=== PATIENT | female | born 1945 | race Caucasian/White ===

== ENCOUNTER 2023-09-19 12:21 | Inpatient (IN) ==
[2023-09-19] MEDS: ACETAMINOPHEN 325 MG TABLET PO ONE (13:14)
[2023-09-19] MEDS: VANCOMYCIN 1,500 MG in 0.9 % SODIUM CHLORIDE 500 ML IV ONE (13:42)
[2023-09-19 13:44] LABS: Basophils # (Auto) 0.02 K/mcL (0.00-0.30); Basophils % (Auto) 0.1 % (0.0-2.0); Eosinophils # (Auto) 0 K/mcL (0.00-0.70); Eosinophils % (Auto) 0 % (0.0-7.0); Hematocrit 38.4 % (34.1-44.9); Hemoglobin 11.7 g/dL (11.2-15.7); Lymphocytes # (Auto) 0.52 K/mcL (1.50-4.80); Lymphocytes % (Auto) 3.8 % (15.5-49.0); Mean Cell Volume 89.7 fL (80.0-100.0); Mean Corpuscular HGB Conc 30.5 g/dL (31.0-36.0); Mean Platelet Volume 9.5 fL (8.8-12.5); Monocytes # (Auto) 0.43 K/mcL (0.10-0.90); Monocytes % (Auto) 3.2 % (1.0-12.0); Neutrophils % (Auto) 92.5 % (38.0-78.0); Platelet Count 175 K/mcL (140-440); RBC 4.28 M/mcL (3.59-5.38); WBC 13.6 K/mcL (4.5-11.0)
[2023-09-19 14:07] LABS: ALT/SGPT 7 U/L (<40); AST/SGOT 22 U/L (<32); Albumin 4.3 gm/dL (3.2-5.2); Albumin/Globulin Ratio 1.2 (1.0-2.3); Alkaline Phosphatase 116 U/L (39-117); Bilirubin,Total 0.5 mg/dL (0.1-1.0); Blood Urea Nitrogen 23 mg/dL (8-23); C-Reactive Protein 5.79 mg/dL (0.03-0.80); Calcium 9.5 mg/dL (8.6-10.4); Carbon Dioxide 27 mmol/L (22-30); Chloride 97 mmol/L (96-108); Globulin 3.5 gm/dL (2.2-3.7); Glomerular Filtration Rate 54; Glucose 128 mg/dL (70-105)
[2023-09-19 14:24] LABS: Appearance,Urine Clear (Clear); Bilirubin,Urine Negative (Negative); Color,Urine Yellow; Culture Indicated,Urine No; Glucose,Urine (UA) Negative (Negative); Ketones,Urine Negative (Negative); Leukocyte Esterase,Urine Negative /uL (Negative); Nitrate,Urine Negative (Negative); Protein,Urine Negative (Negative); Specific Gravity,Urine 1.015 (1.000-1.035); Urine Blood Small ery/mcL (Negative); Urine RBC 1 /hpf (0-3); Urine Squamous Epithelial Cell 0 /hpf (0-4); Urine WBC 4 /hpf (0-4); Urobilinogen,Urine Normal
[2023-09-19] MEDS: HYDROcodone/APAP 5/325MG TABLET PO PRN (16:08)
[2023-09-19] MEDS ORDERED: VANCOMYCIN PER PHARMACY IV SCH (17:15)
[2023-09-19] MEDS ORDERED: ONDANSETRON 4 MG/2 ML VIAL IV PRN (17:16)
[2023-09-19] MEDS ORDERED: SENNOSIDES 1 TABLET PO PRN (17:16)
[2023-09-19] MEDS ORDERED: POLYETHYLENE GLYCOL 3350 17 GM PACKET PO PRN (17:16)
[2023-09-19] MEDS: PIPERACILLIN SODIUM/TAZOBACTAM 4.5 GM in DEXTROSE 5% IN WATER 50 ML IV ONE (17:44)
[2023-09-19] MEDS: VANCOMYCIN PER PHARMACY IV ONE (20:44)
[2023-09-19] MEDS: morphine 4 MG/ML VIAL IV PRN (20:58)
[2023-09-19] MEDS: HEPARIN 5,000 UNIT/ML VIAL SQ SCH (20:59)
[2023-09-19] MEDS: 0.9 % SODIUM CHLORIDE 10 ML SYRINGE IV SCH (21:09)
[2023-09-19] MEDS: PIPERACILLIN SODIUM/TAZOBACTAM 4.5 GM in DEXTROSE 5% IN WATER 100 ML IV SCH (22:11)
[2023-09-20] MEDS: VANCOMYCIN 500 MG in 0.9 % SODIUM CHLORIDE 100 ML IV ONE (00:22)
[2023-09-20 07:38] LABS: Basophils # (Auto) 0.02 K/mcL (0.00-0.30); Basophils % (Auto) 0.3 % (0.0-2.0); Eosinophils # (Auto) 0.04 K/mcL (0.00-0.70); Eosinophils % (Auto) 0.5 % (0.0-7.0); Hematocrit 32.8 % (34.1-44.9); Hemoglobin 10.1 g/dL (11.2-15.7); Lymphocytes # (Auto) 0.63 K/mcL (1.50-4.80); Lymphocytes % (Auto) 8.1 % (15.5-49.0); Mean Cell Volume 89.4 fL (80.0-100.0); Mean Corpuscular HGB Conc 30.8 g/dL (31.0-36.0); Mean Platelet Volume 9.7 fL (8.8-12.5); Monocytes # (Auto) 0.37 K/mcL (0.10-0.90); Monocytes % (Auto) 4.8 % (1.0-12.0); Platelet Count 136 K/mcL (140-440); RBC 3.67 M/mcL (3.59-5.38); Red Cell Distribution Width 13.1 % (11.5-14.5); WBC 7.8 K/mcL (4.5-11.0)
[2023-09-20] MEDS ORDERED: ALBUTEROL SULFATE 60 PUFF INHALER INH PRN (07:57)
[2023-09-20 07:59] LABS: ALT/SGPT 8 U/L (<40); AST/SGOT 25 U/L (<32); Albumin 3.6 gm/dL (3.2-5.2); Albumin/Globulin Ratio 1.2 (1.0-2.3); Alkaline Phosphatase 91 U/L (39-117); Bilirubin,Direct < 0.2 mg/dL (0-0.3); Bilirubin,Total 0.5 mg/dL (0.1-1.0); Blood Urea Nitrogen 21 mg/dL (8-23); Calcium 8.3 mg/dL (8.6-10.4); Carbon Dioxide 26 mmol/L (22-30); Chloride 100 mmol/L (96-108); Globulin 3.1 gm/dL (2.2-3.7); Glomerular Filtration Rate 48; Glucose 108 mg/dL (70-105); Lactate Dehydrogenase 169 U/L (135-225); Phosphorous 2.7 mg/dL (2.5-4.5); Triglycerides 83 mg/dL (<150); Uric Acid 5.8 mg/dL (2.5-8.0)
[2023-09-20] MEDS ORDERED: FLUTICASONE PROPIONATE SPRAY.NAS NAS PRN (08:00)
[2023-09-20] MEDS ORDERED: LIDOCAINE 4% TOPICAL PRN (08:02)
[2023-09-20] MEDS: OMEPRAZOLE 20 MG CAPSULE PO SCH (08:30)
[2023-09-20] MEDS: SERTRALINE 100 MG TABLET PO SCH (08:32)
[2023-09-20] MEDS: PRAMIPEXOLE 0.25 MG TABLET PO SCH (08:32)
[2023-09-20] MEDS: VITAMIN D3 25 MCG TABLET PO SCH (08:32)
[2023-09-20] MEDS: buPROPion 150 MG TAB.XL.24H PO SCH (08:33)
[2023-09-20] MEDS: FERROUS SULFATE 325 MG TABLET PO SCH (08:33)
[2023-09-20] MEDS: GABAPENTIN 300 MG CAPSULE PO SCH (08:33)
[2023-09-20] MEDS: LEVOTHYROXINE 150 MCG TABLET PO SCH (08:34)
[2023-09-20] MEDS: Vibegron 75 mg tablet PO SCH (08:38)
[2023-09-20] MEDS: LIDOCAINE 4% TOP PATCH TOPICAL SCH (08:38)
[2023-09-20] MEDS: POTASSIUM CHLORIDE 20 MEQ TABLET PO ONE (08:42)
[2023-09-20] MEDS: ALENDRONATE SODIUM 70 MG TABLET PO SCH (08:43)
[2023-09-20] MEDS: VANCOMYCIN 1,500 MG in 0.9 % SODIUM CHLORIDE 500 ML IV SCH (10:36)
[2023-09-20] MEDS ORDERED: GADOBENATE DIMEGLUMINE 20 ML/VIAL IV ONE (17:37)
[2023-09-20] MEDS: traZODone HCL 100 MG TABLET PO SCH (20:49)
[2023-09-20] MEDS: SIMVASTATIN 20 MG TABLET PO SCH (20:49)
[2023-09-21 06:17] LABS: Basophils # (Auto) 0.02 K/mcL (0.00-0.30); Basophils % (Auto) 0.4 % (0.0-2.0); Eosinophils # (Auto) 0.29 K/mcL (0.00-0.70); Eosinophils % (Auto) 6.1 % (0.0-7.0); Hematocrit 31.8 % (34.1-44.9); Hemoglobin 9.5 g/dL (11.2-15.7); Lymphocytes # (Auto) 1.21 K/mcL (1.50-4.80); Lymphocytes % (Auto) 25.3 % (15.5-49.0); Mean Cell Volume 91.4 fL (80.0-100.0); Mean Corpuscular HGB Conc 29.9 g/dL (31.0-36.0); Mean Platelet Volume 9.8 fL (8.8-12.5); Monocytes # (Auto) 0.47 K/mcL (0.10-0.90); Monocytes % (Auto) 9.8 % (1.0-12.0); Neutrophils % (Auto) 58.2 % (38.0-78.0); Platelet Count 131 K/mcL (140-440); RBC 3.48 M/mcL (3.59-5.38); Red Cell Distribution Width 13.3 % (11.5-14.5); WBC 4.8 K/mcL (4.5-11.0)
[2023-09-21 06:56] LABS: ALT/SGPT 7 U/L (<40); AST/SGOT 21 U/L (<32); Albumin 3.3 gm/dL (3.2-5.2); Albumin/Globulin Ratio 1.1 (1.0-2.3); Alkaline Phosphatase 82 U/L (39-117); Bilirubin,Direct < 0.2 mg/dL (0-0.3); Bilirubin,Total < 0.2 mg/dL (0.1-1.0); Blood Urea Nitrogen 23 mg/dL (8-23); Calcium 8.3 mg/dL (8.6-10.4); Carbon Dioxide 28 mmol/L (22-30); Chloride 105 mmol/L (96-108); Glomerular Filtration Rate 39; Glucose 86 mg/dL (70-105); Lactate Dehydrogenase 156 U/L (135-225); Phosphorous 3.4 mg/dL (2.5-4.5); Triglycerides 114 mg/dL (<150)
[2023-09-21] MEDS: LIDOCAINE 5 GM CREAM.TOP TOPICAL ONE (07:23)
[2023-09-21] MEDS: morphine 4 MG/ML VIAL IV ONE ×2 (08:41→09:23)
[2023-09-21] MEDS: LOPERAMIDE 2 MG CAPSULE PO ONE (20:27)
[2023-09-22] MEDS: ACETAMINOPHEN 325 MG TABLET PO PRN (02:25)
[2023-09-22] MEDS: LOPERAMIDE 2 MG CAPSULE PO PRN (03:59)
[2023-09-22 06:22] LABS: Basophils # (Auto) 0.02 K/mcL (0.00-0.30); Basophils % (Auto) 0.4 % (0.0-2.0); Eosinophils # (Auto) 0.31 K/mcL (0.00-0.70); Eosinophils % (Auto) 5.7 % (0.0-7.0); Hemoglobin 10.1 g/dL (11.2-15.7); Lymphocytes # (Auto) 1.14 K/mcL (1.50-4.80); Lymphocytes % (Auto) 20.8 % (15.5-49.0); Mean Cell Volume 91.2 fL (80.0-100.0); Mean Corpuscular HGB Conc 30.6 g/dL (31.0-36.0); Mean Platelet Volume 9.6 fL (8.8-12.5); Monocytes # (Auto) 0.42 K/mcL (0.10-0.90); Monocytes % (Auto) 7.7 % (1.0-12.0); Neutrophils % (Auto) 65.2 % (38.0-78.0); Platelet Count 147 K/mcL (140-440); RBC 3.62 M/mcL (3.59-5.38); Red Cell Distribution Width 13.3 % (11.5-14.5); WBC 5.5 K/mcL (4.5-11.0)
[2023-09-22 06:46] LABS: ALT/SGPT < 5 U/L (<40); AST/SGOT 20 U/L (<32); Albumin 3.5 gm/dL (3.2-5.2); Albumin/Globulin Ratio 1.2 (1.0-2.3); Alkaline Phosphatase 90 U/L (39-117); Bilirubin,Direct < 0.2 mg/dL (0-0.3); Bilirubin,Total < 0.2 mg/dL (0.1-1.0); Blood Urea Nitrogen 21 mg/dL (8-23); Calcium 9.1 mg/dL (8.6-10.4); Carbon Dioxide 27 mmol/L (22-30); Chloride 106 mmol/L (96-108); Glomerular Filtration Rate 54; Glucose 87 mg/dL (70-105); Lactate Dehydrogenase 176 U/L (135-225); Phosphorous 3.2 mg/dL (2.5-4.5); Triglycerides 103 mg/dL (<150); Uric Acid 4.2 mg/dL (2.5-8.0)
[2023-09-22 07:03] LABS: Vancomycin,Random 16.1 ug/mL
[2023-09-22] MEDS: oxyCODONE IR 5 MG TABLET PO ONE (07:55)
[2023-09-22] MEDS: VANCOMYCIN 1,500 MG in 0.9 % SODIUM CHLORIDE 500 ML IV SCH (09:45)
[2023-09-23 06:40] LABS: Basophils # (Auto) 0.02 K/mcL (0.00-0.30); Basophils % (Auto) 0.4 % (0.0-2.0); Eosinophils # (Auto) 0.25 K/mcL (0.00-0.70); Eosinophils % (Auto) 4.9 % (0.0-7.0); Hematocrit 31.2 % (34.1-44.9); Hemoglobin 9.3 g/dL (11.2-15.7); Lymphocytes # (Auto) 1.09 K/mcL (1.50-4.80); Lymphocytes % (Auto) 21.4 % (15.5-49.0); Mean Corpuscular HGB Conc 29.8 g/dL (31.0-36.0); Mean Platelet Volume 10.2 fL (8.8-12.5); Monocytes # (Auto) 0.43 K/mcL (0.10-0.90); Monocytes % (Auto) 8.4 % (1.0-12.0); Neutrophils % (Auto) 64.5 % (38.0-78.0); Platelet Count 153 K/mcL (140-440); RBC 3.43 M/mcL (3.59-5.38); Red Cell Distribution Width 13.2 % (11.5-14.5); WBC 5.1 K/mcL (4.5-11.0)
[2023-09-23 07:31] LABS: ALT/SGPT 5 U/L (<40); AST/SGOT 18 U/L (<32); Albumin 3.4 gm/dL (3.2-5.2); Albumin/Globulin Ratio 1.2 (1.0-2.3); Alkaline Phosphatase 81 U/L (39-117); Bilirubin,Direct < 0.2 mg/dL (0-0.3); Bilirubin,Total < 0.2 mg/dL (0.1-1.0); Blood Urea Nitrogen 19 mg/dL (8-23); Calcium 9.2 mg/dL (8.6-10.4); Carbon Dioxide 27 mmol/L (22-30); Chloride 106 mmol/L (96-108); Globulin 2.8 gm/dL (2.2-3.7); Glomerular Filtration Rate 62; Glucose 90 mg/dL (70-105); Lactate Dehydrogenase 179 U/L (135-225); Phosphorous 3.3 mg/dL (2.5-4.5); Triglycerides 103 mg/dL (<150); Uric Acid 3.7 mg/dL (2.5-8.0)
[2023-09-23] MEDS ORDERED: GABAPENTIN 300 MG CAPSULE PO SCH (21:00)
[2023-09-25] MEDS ORDERED: ALENDRONATE SODIUM 70 MG TABLET PO SCH (07:30)
== END 2023-09-23 12:44 | DRG 602 ==
LOC: ED 12:21 → MEDSUR 17:00
PROVIDERS: ADMIT Student in an Organized Health Care Education/Training Program; ATTEND Student in an Organized Health Care Education/Training Program